=== PATIENT | male | born 1945 | race Caucasian/White ===

== ENCOUNTER 2021-12-04 06:57 | Day surgery (SDC) | payer MEDICARE, BC ==
[2021-11-30 15:42] LABS: BASOPHILS % (AUTO) 0.1 % (0-1); EOSINOPHILS % (AUTO) 0.1 % (0-6); LYMPHOCYTES # (AUTO) 1.5 X10'3 (1.1-4.8); LYMPHOCYTES % (AUTO) 12.9 % (21-51); MEAN CORPUSCULAR HEMOGLOBIN 30.9 PG (27.0-31.0); MEAN CORPUSCULAR HGB CONC 33.7 g/dL (33.0-36.5); MEAN CORPUSCULAR VOLUME 91.7 FL (78-98); MEAN PLATELET VOLUME 7.9 FL (7.4-10.4); MONOCYTES # (AUTO) 0.6 X10'3 (0-0.9); MONOCYTES % (AUTO) 5.3 % (2-12); NEUTROPHILS # (AUTO) 9.3 X10'3 (1.8-7.7); NEUTROPHILS % (AUTO) 81.6 % (42-75); PRE OP HEMATOCRIT 42.8 % (42.0-52.0); PRE OP HEMOGLOBIN 14.4 g/dL (14.0-17.9); PRE OP PLATELET COUNT 149 X10'3 (140-440); RED BLOOD COUNT 4.66 X10'6 (4.70-6.10); RED CELL DISTRIBUTION WIDTH 13.3 % (11.5-14.5)
[2021-11-30 15:56] LABS: ALBUMIN/GLOBULIN RATIO 1.4 (1.1-1.5); ALKALINE PHOSPHATASE 65 IU/L (46-116); BLOOD UREA NITROGEN 25 MG/DL (7-18); CHLORIDE 106 MMOL/L (99-107); CREATININE 1.04 MG/DL (0.60-1.10); PRE OP ALT 54 U/L (30-65); PRE OP ANION GAP 13 (8-16); PRE OP AST 17 U/L (10-37); PRE OP BILIRUB, TOTAL 0.9 MG/DL (0.0-1.0); PRE OP GLUCOSE 187 MG/DL (70-104); PRE OP SODIUM 143 MMOL/L (135-145); TOTAL CARBON DIOXIDE 24.2 MMOL/L (24-32); TOTAL PROTEIN 6.8 G/DL (6.4-8.2); eGFR 69 ML/MIN
[2021-12-04] VITALS (7 sets, daily range): BP systolic 118–141; BP diastolic 65–73
[~2021-12-04] VITALS: Ht 182.9 cm; Wt 88.5 kg
[~2021-12-04 06:57] MED LIST: BUPIVAcaine 0.5% inj/PF 30 ML ONE; CHLO25TA10 PO; DULA1.5P SQ; GLU850T PO; LOSA100T57 PO; MULT-620 PO; POTA-188 PO; ROSU20TA2 PO; VITA200T8 PO; cefazolin/dext.iso 2gm/50ml IV ONE; famotidine 20mg tablet PO ONE; ringers solution, lacted 1,000 ML IV SCH
[2021-12-04] MEDS ORDERED: ondansetron/PF 4mg/2ml inj IV PRN (08:15)
[2021-12-04] MEDS ORDERED: morphine 2 MG/ML inj. syringe IV PRN (08:15)
[2021-12-04] MEDS ORDERED: fentaNYL/PF 50MCG/1 ML 2ML syringe IV PRN ×2 (08:15)
[2021-12-04] MEDS ORDERED: ringers solution, lacted 1,000 ML IV SCH (08:15)
[2021-12-04] MEDS ORDERED: labetalol 20mg/4ml (5mg/ml) syringe IV PRN (08:15)
[2021-12-04] MEDS ORDERED: hydrALAZINE 20mg/ml inj. IV PRN (08:15)
[2021-12-04] MEDS ORDERED: morphine 4 MG/ML inj SYRINge IV PRN (08:15)
[2021-12-04] MEDS ORDERED: BUPIVAcaine 0.5% inj/PF 30 ml vial IJ ONE (09:00)
[2021-12-04] MEDS ORDERED: fentaNYL/PF 50MCG/1 ML 2ML syringe ONE (09:29)
[2021-12-04] MEDS ORDERED: midazolam 1 mg/ML 2ml injection ONE (09:30)
--- NOTE | 2021-12-04 09:51 | NUR ---
Received from OR via [facility], accompanied by Anesthesiologist DR RUBIO and report given by Anesthesiolgist. PT PRESENTS WITH 20G LEFT HAND, DRESSING ON RIGHT HAND CLEAN DRY AND INTACT, VSS. Addendum: 12/04/21 at 1002 by Anusha Gallegos RN, RN Amended: Links added.
--- NOTE | 2021-12-04 10:41 | NUR ---
I HAVE REVIEWED D/C INSTRUCTIONS WITH PATIENT AND THEY HAVE VERBALIZED UNDERSTANDING OF INSTRUCTIONS. PATIENT D/C HOME WITH ALL BELONGINGS AND FAMILY GAVE TRANSPORT Addendum: 12/04/21 at 1047 by Anusha Gallegos RN, RN Amended: Links added.
== END 2021-12-04 10:41 | disposition home or self-care (01) ==
LOC: PAS 06:57
PROVIDERS: ATTEND Orthopaedic Surgery Hand Surgery
DX: G56.01 Carpal tunnel syndrome, right upper limb (principal); M17.0 Bilateral primary osteoarthritis of knee; I10 Essential (primary) hypertension; E83.119 Hemochromatosis, unspecified; E78.5 Hyperlipidemia, unspecified; E66.8 Other obesity; Z68.27 Body mass index [BMI] 27.0-27.9, adult; E11.59 Type 2 diabetes mellitus with other circulatory complications; Z20.822 Contact with and (suspected) exposure to COVID-19; Z79.899 Other long term (current) drug therapy; Z79.84 Long term (current) use of oral hypoglycemic drugs; Z98.1 Arthrodesis status; Z98.890 Other specified postprocedural states; Z87.891 Personal history of nicotine dependence; Z72.89 Other problems related to lifestyle
CPT/HCPCS: 36415; 64721; 80053; 82948; 85025; 87635; 93005; C9803; J0690; J2250; J3010; J7030; J7120; S0020; Z7506; Z7512; A4215